=== PATIENT | female | born 1940 | race Caucasian/White ===

== ENCOUNTER 2017-06-20 09:09 | Day surgery (SDC) | payer MEDICARE ==
[~2017-06-20] VITALS: Ht 170.2 cm; Wt 59.9 kg
[~2017-06-20 09:09] MED LIST: ATENOLOL25 MG PO; CARTIA XT180 MG PO; FLUOXETINE HCL20 M1 PO; METHOTREXATE2.5 MG PO; SPIRONOLACTONE1 EACH PO; TRAZODONE HCL50 MG PO
[2017-06-20] MEDS ORDERED: FLUOXETINE HCL20 MG PO (10:00)
--- NOTE | 2017-06-20 10:55 | NUR ---
06/20/17 Ninoska4 Malaika Moore 1045-PATIENT ARRIVED TO PACU ON 3L NC O2 SAT 100% PATIENT DROWSY EYES OPEN ABDOMEN SOFT.
--- NOTE | 2017-06-25 08:07 | OR ---
[facility] [address] [place], [place] [address] Signed DATE OF OPERATION: 06/20/2017 SURGEON: Josiah Rangel MD PREOPERATIVE DIAGNOSES: 1. Mother with history of colon cancer at age 70. 2. Personal history of multiple colonic polyps. 3. Diverticulosis. 4. Internal and external hemorrhoids. 5. Tattoo distal right colon. POSTOPERATIVE DIAGNOSES: 1. Minimal internal and external hemorrhoids. 2. A 5 mm polyps in proximal right colon and proximal transverse colon 80 cm, and distal right colon. PROCEDURE: Colonoscopy with hot biopsy. ESTIMATED BLOOD LOSS: None. INDICATIONS: Dominique is a 76-year-old female who has just now started to develop some dementia. 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 She has had several prior colonoscopies with multiple colonic polyps removed. In addition, her mother has a history of colon cancer at age 70. She is known to have a little diverticulosis along with internal and external hemorrhoids. In the office, I gave her and her family a booklet on colonoscopy. We looked at that together along with the risks including, but not limited to gas bloating, crampy abdominal pain, bleeding, perforation, requiring surgery, and missed diagnosis. She also understands the need for IV conscious sedation. They expressed understanding and wished to proceed. PROCEDURE NOTE: Dominique was taken into our endoscopy suite and placed in the left lateral decubitus position. She was given divided doses 6 mg of Versed and 150 mcg of fentanyl. A digital rectal exam was performed and this was unremarkable except for some small external hemorrhoids. The adult colonoscope was introduced and advanced out into the cecum under direct visualization of camera. It took some additional sedation and abdominal compression in order to advance the scope. Her prep was good. After this, Electronically Signed By: JOSIAH RANGEL MD 06/25/17 0807 PATIENT NAME: DOMINIQUE ALCANTARA OPERATIVE REPORT DATE OF : 38 PHYSICIAN: JOSIAH RANGEL MD REPORT #: [id number] REPORT IS CONFIDENTIAL AND NOT TO BE RELEASED WITHOUT AUTHORIZATION [facility] [address] [place], [place] [address] Signed the scope was slowly withdrawn. The above-mentioned polyps were removed with the help of hot biopsy forceps. I did not specifically see the diverticula on this occasion. Upon retroflexion of the scope, she does have a little bit internal hemorrhoids as well. After this, the gas was suctioned out. The colonoscope removed. Dominique tolerated the procedure quite well. RECOMMENDATIONS: I will see Dominique back in my office in 7 to 14 days to review her results. Josiah Rangel MD ALB/LILLIANAL /[id number] cc: Bc Padilla MD Electronically Signed By: JOSIAH RANGEL MD 06/25/17 0807 PATIENT NAME: DOMINIQUE ALCANTARA OPERATIVE REPORT DATE OF : 38 PHYSICIAN: JOSIAH RANGEL MD REPORT #: [id number] REPORT IS CONFIDENTIAL AND NOT TO BE RELEASED WITHOUT AUTHORIZATION
== END 2017-06-20 11:35 | disposition home or self-care (01) ==
LOC: DS 09:09 → OPS 09:09 → DS 10:30 → OPS 10:30
PROVIDERS: Colon & Rectal Surgery
PROC: 0DBE8ZX Excision of Large Intestine, Via Natural or Artificial Opening Endoscopic, Diagnostic (ICD-10-PCS; 2017-06-20)
PROC: 0DBL8ZX Excision of Transverse Colon, Via Natural or Artificial Opening Endoscopic, Diagnostic (ICD-10-PCS; 2017-06-20)
PROC: 0DBF8ZX Excision of Right Large Intestine, Via Natural or Artificial Opening Endoscopic, Diagnostic (ICD-10-PCS; principal; 2017-06-20 10:30)
DX: Z12.11 Encounter for screening for malignant neoplasm of colon (principal); D12.2 Benign neoplasm of ascending colon; D12.3 Benign neoplasm of transverse colon; D12.6 Benign neoplasm of colon, unspecified; K64.4 Residual hemorrhoidal skin tags; K64.8 Other hemorrhoids; K57.30 Diverticulosis of large intestine without perforation or abscess without bleeding; I10 Essential (primary) hypertension; M06.9 Rheumatoid arthritis, unspecified; M19.90 Unspecified osteoarthritis, unspecified site; G43.909 Migraine, unspecified, not intractable, without status migrainosus; F03.90 Unspecified dementia, unspecified severity, without behavioral disturbance, psychotic disturbance, mood disturbance, and anxiety; F32.9 Major depressive disorder, single episode, unspecified; F41.9 Anxiety disorder, unspecified; Z80.0 Family history of malignant neoplasm of digestive organs; Z86.010 Personal history of colon polyps; Z79.899 Other long term (current) drug therapy; Z98.49 Cataract extraction status, unspecified eye; Z90.49 Acquired absence of other specified parts of digestive tract; Z98.890 Other specified postprocedural states; Z87.891 Personal history of nicotine dependence
CPT/HCPCS: 88305; 99153; G0500; J2250; J3010; J7120